=== PATIENT | male | born 2000 | race Asian ===

== ENCOUNTER 2020-07-22 18:02 | Emergency (ER) | payer OTHER, SELFPAY ==
[2020-07-22 18:12] VITALS: BP 130/76; PULSE 93; RESP 16; TEMP 36.7; O2SAT 98; BMI 22.0
--- NOTE | 2020-07-22 18:34 | ED_ITS ---
HPI - URI/Sore Throat General: Chief Complaint: Upper Respiratory Infection Stated Complaint: N/V sore throat Time Seen by Provider: 07/22/20 18:19 History of Present Illness: HPI Narrative: Upper restaurant infection times couple 3 days with mucus going stomach vomited x1 denies fever has had some chills denies any preston type symptoms. MD elicited complaint: sore throat, nasal congestion and sinus pain Onset (ago): day(s) Consistency: constant Associated symptoms: Reports nasal congestion and sinus pain; Deny abdominal pain, chills, chest pain, fever(s), headache(s), nausea or vomiting Treatments prior to arrival: none Review of Systems Const: Denies: fever(s), chills or body aches Eyes: Denies: change in vision or blurry vision ENMT: Reports: throat pain, nasal congestion and sinus pain Card: Denies: chest pain or dyspnea on exertion Resp: Denies: dyspnea, productive cough or non-productive cough GI: Denies: abdominal pain, nausea or vomiting : Denies: difficulty urinating Musc: Denies: extremity pain Skin/Breast: Denies: rash Neuro: Denies: headache(s) Psych: Denies: anxiety or depression Tonny/Lymph: Denies: easy bruising Physical Exam Const: COMMON NORMALS: no acute distress, average body habitus and patient oriented x3 HENMT: COMMON NORMALS: normocephalic HEAD & SCALP: normal to inspection and normocephalic FACE & SINUS: sinus tenderness Eye: COMMON NORMALS: conjunctivae normal GENERAL EYE: appearance normal, both eyes and all related structures CONJUNCTIVA: Yes conjunctivae normal Neck/C-Spine: COMMON NORMALS: no JVD Chest: COMMONS NORMALS: normal inspection of the chest Resp: COMMON NORMALS: normal respiratory effort and clear to auscultation bilaterally AUSCULTATION: clear to auscultation bilaterally Cardio: COMMON NORMALS: no JVD, regular rate and regular rhythm RATE: regular rate RHYTHM: regular rhythm GI: COMMON NORMALS: Normal to inspection, nondistended, normoactive bowel sounds present Extremity: COMMON NORMALS: normal to inspection and full ROM Neuro: COMMON NORMALS: patient oriented x3 Course Vital Signs: Vital signs: Vital Signs Temperature 98.1 F 07/22/20 18:12 Pulse Rate 93 07/22/20 18:12 Respiratory Rate 16 07/22/20 18:12 Blood Pressure 130/76 07/22/20 18:12 Pulse Oximetry 98 07/22/20 18:12 Discharge Plan Discharge Patient Disposition: Home Clinical Impression: Upper respiratory infection Qualifiers: URI type: unspecified URI Qualified Code(s): J06.9 - Acute upper respiratory infection, unspecified Condition: Stable Prescriptions: New Bactrim DS 800-160 mg tablet 1 tab PO BID 7 Days Qty: 14 RF: 0 Mucinex 1,200 mg tablet extended release 12hr 1,200 mg PO BID PRN (Reason: congestion) Qty: 14 RF: 0 Discharge Orders: Discharge ED (Routine); Ordered 07/22/20 Ordered By: Caesar Craven Discharge Diet: Usual diet Discharge Activity: Increase activity as tolerated Patient Instructions: Upper Respiratory Infection (ED) Activity Restrictions/Additional Instructions: Follow-up with medical provider as directed. Take medications as prescribed. Return to the ER or your medical provider if condition worsens. Please read and understand discharge instructions. If any questions ask please. 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
[2020-07-22 18:40] VITALS: BP 120/69; PULSE 79; RESP 16; O2SAT 97
[2020-07-22] MEDS: sulfamethoxazole-trimeth DS 160-800 mg Tablet 1 TAB PO (18:40)
[2020-07-22] MEDS: guaiFENesin 600 mg Tablet 1200 MG PO (19:20)
== END 2020-07-22 19:26 | disposition home or self-care (01) ==
PROVIDERS: Emergency Provider Nurse Practitioner Family
DX: J06.9 Acute upper respiratory infection, unspecified (principal)
CPT/HCPCS: 12345; 99282

== ENCOUNTER → 2021-05-05 12:51 | Outpatient (BNVA) | payer OTHER, SELFPAY | PROVIDERS: Visit Provider Nurse Practitioner Family | DX: Z20.822 Contact with and (suspected) exposure to COVID-19 (principal) | CPT/HCPCS: 87635 ==

== ENCOUNTER 2021-07-17 04:30 | Emergency (ER) | payer OTHER, SELFPAY ==
[2021-07-17] MEDS: ondansetron 2 mg/ML SDV 2 mL 4 MG IVP (04:35)
[2021-07-17] MEDS: sodium chloride 0.9% 1,000 ML 999 ML IV (04:35)
[2021-07-17 04:40] VITALS: BP 125/76; PULSE 79; RESP 18; TEMP 36.5; O2SAT 100; BMI 22.0
--- NOTE | 2021-07-17 04:51 | W.ED.NAVMDI ---
HPI - Nausea/Vomiting/Diarrhea General: Chief complaint: Nausea/Vomiting/Diarrhea Stated complaint: ABD Pain N\V Time Seen by Provider: 07/17/21 04:33 Source: patient Mode of arrival: ambulatory Limitations: no limitations History of Present Illness: HPI Narrative: 20-year-old male states that he woke up 1 hour ago having some nausea vomiting and abdominal cramping. He states that he has had multiple episodes of vomiting the cramping is mild in nature rates it a 2 out of 10 denies any fever denies any diarrhea denies any worsening or improving factors. States it is a normal gait anything that made him sick. He is resting comfortably in the bed currently. Associated nausea: Yes Associated symtoms: Reports nausea; Denies chest pain, dysuria or headache(s) Review of Systems Const: Denies: fever(s), chills, body aches or change in appetite Eyes: Denies: blurry vision or eye discomfort ENMT: Denies: throat pain or dental pain Card: Denies: chest pain Resp: Denies: dyspnea GI: Reports: abdominal pain, nausea and vomiting : Denies: dysuria Musc: Denies: neck pain or back pain Skin/Breast: Denies: rash Neuro: Denies: headache(s) Psych: Denies: depression Tonny/Lymph: Denies: easy bruising All/Imm: Denies: urticaria PFSH ED PFSH: Social History Smoking and tobacco status: current every day smoker cigarettes and e-cigarettes E-Cigarette Details: vaporizer device Physical Exam Const: COMMON NORMALS: no acute distress, patient oriented x3 and healthy appearing HENMT: COMMON NORMALS: normocephalic and atraumatic HEAD & SCALP: normocephalic and atraumatic Eye: COMMON NORMALS: Equal, round and reactive pupils present and EOMs intact bilaterally PUPIL: Yes Equal, round and reactive pupils present Neck/C-Spine: COMMON NORMALS: full ROM and supple Chest: COMMONS NORMALS: normal inspection of the chest and normal palpation of entire chest wall Resp: COMMON NORMALS: normal respiratory effort, No retractions, No use of accessory muscles and clear to auscultation bilaterally AUSCULTATION: clear to auscultation bilaterally Cardio: COMMON NORMALS: regular rate, regular rhythm and No murmurs present (Cardio) RATE: regular rate RHYTHM: regular rhythm GI: COMMON NORMALS: Normal to inspection, nondistended, normoactive bowel sounds present, Soft to palpation, non-tender and no masses PALPATION: Yes Soft to palpation Extremity: COMMON NORMALS: normal to inspection and full ROM Neuro: COMMON NORMALS: patient oriented x3, moves all extremities and no focal motor deficits Psych: COMMON NORMALS: mental status grossly normal, Normal thought process present and cooperative THOUGHT PROCESS: Normal thought process present Skin: COMMON NORMALS: no rashes or lesions noted and no wounds GENERAL SKIN EXAM: no rashes or lesions noted Course Vital Signs: Vital signs: Vital Signs Temperature 97.7 F 07/17/21 04:40 Pulse Rate 79 07/17/21 04:40 Respiratory Rate 18 07/17/21 04:40 Blood Pressure 125/76 07/17/21 04:40 Pulse Oximetry 100 07/17/21 04:40 MDM - Nausea/Vomiting/Diarrhea MDM Narrative: Medical decision making narrative: Patient presents with nausea vomiting likely viral in origin he is well-appearing here you his abdominal exam is benign he has no pain patient's blood work is all normal will prescribe him Zofran for home he is to follow-up his PCP and return if worsening he understands agrees to plan. Lab Data: Labs: Lab Results 07/17/21 07/17/21 04:57 04:57 WBC 10.5 10^3/uL H 10 ^3/uL (4.0-10.0) RBC 5.03 10^6/uL 10^6 /uL (4.1-5.3) Hgb 16.2 g/dL g/dL (11.7-16.6) Hct 46.9 % % (42.0-52.0) MCV 93.2 fl fl (80-94) MCH 32.2 pg pg (28.0-34.0) MCHC 34.5 g/dL g/dL (30.0-36.0) RDW 11.8 % L % (12.1-15.1) Plt Count 347 10^3/cmm 10^3 /cmm (130-400) MPV 10.1 fL fL (7.4-10.4) Neut % (Auto) 53.7 % % Lymph % (Auto) 36.1 % % [place] % (Auto) 8.9 % % Eos % (Auto) 0.6 % % Baso % (Auto) 0.4 % % Neut # (Auto) 5.62 10^3/uL 10^3 /uL (1.8-7.7) Lymph # (Auto) 3.8 10^3/uL 10^3/ uL (0.8-4.8) [place] # (Auto) 0.9 10^3/uL 10^3/ uL (0.2-0.9) Eos # (Auto) 0.1 10^3/uL 10^3/ uL (0.0-0.8) Baso # (Auto) 0.0 10^3/uL 10^3/ uL (0.0-0.1) Nucleated RBC % (a uto) 0 % % Nucleated RBCs # 0.0 /100WBC /100W BC Sodium 141 mmol/L mmol/L (136-145) Potassium 4.6 mmol/L mmol/L (3.5-5.1) Chloride 104 mmol/L mmol/L (98-107) Carbon Dioxide 28 mmol/L mmol/L (22-29) Anion Gap 13.6 (5-19) BUN 16 mg/dL mg/dL (6-20) Creatinine 0.8 mg/dL mg/dL (0.7-1.2) GFR Calculation 122.0 mL/min mL/m in (90-130) Glucose 101 mg/dL mg/dL (65-115) Calculated Osmolal ity 293 mOsm/kg mOsm/ kg (285-295) Calcium 9.6 mg/dL mg/dL (8.5-10.5) Total Bilirubin 0.5 mg/dL mg/dL (0.15-1.2) AST 22 U/L U/L (0-40) ALT 28 U/L U/L (0-41) Alkaline Phosphata se 100 IU/L IU/L (40-130) Total Protein 7.7 g/dL g/dL (6.6-8.7) Albumin 4.7 g/dL g/dL (3.5-5.2) Globulin 3.0 g/dL g/dL (1.3-4.6) Lipase 19 U/L U/L (13-60) Discharge Plan Discharge Patient Disposition: Home Clinical Impression: Vomiting Qualifiers: Vomiting type: unspecified Vomiting Intractability: non-intractable Nausea presence: with nausea Qualified Code(s): R11.2 - Nausea with vomiting, unspecified Condition: Stable Prescriptions: New ondansetron 4 mg tablet,disintegrating 4 mg PO Q6H PRN (Reason: nausea and vomiting) Qty: 14 RF: 0 No Action sertraline 100 mg tablet 100 mg PO DAILY RF: 0 aripiprazole [Abilify] 5 mg tablet 5 mg PO DAILY RF: 0 Discharge Orders: Discharge ED (Routine); Ordered 07/17/21 Ordered By: Jaylene Rhoades Discharge Diet: Advance as tolerated Discharge Activity: Resume usual activity Patient Instructions: Acute Nausea and Vomiting (ED) Stand Alone Forms: Work/School Release Coding Level of Care Code 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
[2021-07-17 05:08] LABS: Basophils % 0.4 %; Eosinophils # 0.1 10^3/uL (0.0-0.8); Eosinophils % 0.6 %; Hematocrit 46.9 % (42.0-52.0); Hemoglobin 16.2 g/dL (11.7-16.6); Lymphocytes # 3.8 10^3/uL (0.8-4.8); Lymphocytes % 36.1 %; Mean Corpuscular HGB Conc 34.5 g/dL (30.0-36.0); Mean Corpuscular Hemoglobin 32.2 pg (28.0-34.0); Mean Corpuscular Volume 93.2 fl (80-94); Mean Platelet Volume 10.1 fL (7.4-10.4); Monocytes # 0.9 10^3/uL (0.2-0.9); Monocytes % 8.9 %; Neutrophils # 5.62 10^3/uL (1.8-7.7); Neutrophils % 53.7 %; Nucleated Red Blood Cells % 0 %; Platelet Count 347 10^3/cmm (130-400); Red Blood Count 5.03 10^6/uL (4.1-5.3); Red Cell Distribution Width 11.8 % (12.1-15.1); White Blood Count 10.5 10^3/uL (4.0-10.0)
[2021-07-17 05:37] LABS: Anion Gap 13.6 (5-19); Aspartate Amino Transferase 22 U/L (0-40); Blood Urea Nitrogen 16 mg/dL (6-20); Calcium 9.6 mg/dL (8.5-10.5); Carbon Dioxide 28 mmol/L (22-29); Chloride 104 mmol/L (98-107); Creatinine Clr Calc Pharmacy 139.1399; Glucose 101 mg/dL (65-115); Lipase 19 U/L (13-60); Osmolality Calculated 293 mOsm/kg (285-295); Potassium 4.6 mmol/L (3.5-5.1); Sodium 141 mmol/L (136-145); Total Bilirubin 0.5 mg/dL (0.15-1.2); Total Protein 7.7 g/dL (6.6-8.7)
[2021-07-17 05:53] LABS: Alanine Aminotransferase 28 U/L (0-41); Albumin Level 4.7 g/dL (3.5-5.2); Alkaline Phosphatase 100 IU/L (40-130)
== END 2021-07-17 05:56 | disposition home or self-care (01) ==
PROVIDERS: Emergency Provider Emergency Medicine
DX: R11.2 Nausea with vomiting, unspecified (principal); F17.210 Nicotine dependence, cigarettes, uncomplicated; F17.290 Nicotine dependence, other tobacco product, uncomplicated
CPT/HCPCS: 80053; 83690; 85025; 96361; 96374; 99283; J2405; J7030

== ENCOUNTER 2021-08-25 02:25 | Emergency (ER) | payer OTHER, SELFPAY ==
[2021-08-25 02:37] VITALS: BP 123/74; PULSE 104; RESP 18; TEMP 36.7; O2SAT 99; BMI 22.8
--- NOTE | 2021-08-25 03:04 | ED_ITS ---
HPI - SOB/Dyspnea General: Chief Complaint: Shortness of Breath/Dyspnea Stated Complaint: Sob, Light head, N/D Cough muscle aches Time Seen by Provider: 08/25/21 03:04 History of Present Illness: HPI Narrative: Mr. Andre is a 20-year-old gentleman with history of tobaccoism and childhood asthma who presents emergency department due to infectious symptoms. Symptom onset was subacute on August 19. He endorses initially generalized aches and pains and has subsequently developed shortness of breath, lightheadedness, generalized myalgias and arthralgias, cough, and tightness in his chest. Additionally he has had some nausea and diarrhea. Overall the course of symptoms has been worsening. He has used yhau-zji-ebpcumn medications without significant relief. He is vaccinated against Covid but does have sick exposures. No other specific changes in hea lth, exacerbating, or relieving factors identified. Review of Systems General: Reports: 10 or more systems reviewed and unremarkable except in HPI and below PFSH ED PFSH: Social History Smoking and tobacco status: current every day smoker cigarettes and e- cigarettes E-Cigarette Details: vaporizer device Physical Exam Narrative: EXAM NARRATIVE: GENERAL/CONSTITUTIONAL -mildly ill-appearing. Eyes -no scleral icterus, no conjunctival injection ENMT - Atraumatic external nose and ears. Moist mucous membranes NECK - supple. trachea midline CARDIOVASCULAR -tachycardic rate and regular rhythm. Normal peripheral perfusion. RESPIRATORY -coarse to auscultation bilaterally. No retractions or accessory muscle use. ABDOMEN/GI - Nontender/Nondistended. MSK - Extremities without obvious deformity or tenderness to palpation SKIN - Warm, Dry NEURO - alert and appropriately oriented. Moves all extremities equally. Course ED course: - Patient was seen and evaluated by me at bedside - Patient placed on cardiac monitors, IV access obtained - Initial evaluation notable for mildly ill appearance as noted -Symptom treatment ordered - Labs notable for mild leukocytosis. No acute electrolyte derangement, mildly elevated ALT. Negative Covid test. Procalcitonin is negative. - Imaging notable for negative chest x-ray - Upon serial reexamination after treatment the patient was somewhat improved - Based on patient history, evaluation, labs, and imaging as interpreted the most likely cause of the patient's condition is viral illness - The results of ED evaluation were discussed with the patient including prescriptions and/or symptomatic cares (if applicable) including appropriate and responsible use, followup plan, and return precautions. The patient verbalized understanding and felt safe for discharge. - Patient discharged in satisfactory condition. Vital Signs: Vital signs: Vital Signs Temperature 98.1 F 08/25/21 02:37 Pulse Rate 83 08/25/21 06:04 Respiratory Rate 18 08/25/21 06:04 Blood Pressure 109/82 08/25/21 06:04 Pulse Oximetry 98 08/25/21 06:04 MDM - SOB/Dyspnea Medical Records: Attestation: I reviewed the patient's medical records. Lab Data: Attestation: I reviewed the patient's lab results. Labs: Lab Results 08/25/21 08/25/21 08/25/21 03:45 03:45 03:45 WBC 12.2 10^3/uL H 10 ^3/uL (4.0-10.0) RBC 5.02 10^6/uL 10^6 /uL (4.1-5.3) Hgb 16.2 g/dL g/dL (11.7-16.6) Hct 46.0 % % (42.0-52.0) MCV 91.6 fl fl (80-94) MCH 32.3 pg pg (28.0-34.0) MCHC 35.2 g/dL g/dL (30.0-36.0) RDW 11.4 % L % (12.1-15.1) Plt Count 394 10^3/cmm 10^3 /cmm (130-400) MPV 10.0 fL fL (7.4-10.4) Neut % (Auto) 63.9 % % Lymph % (Auto) 27.6 % % [place] % (Auto) 7.1 % % Eos % (Auto) 0.6 % % Baso % (Auto) 0.5 % % Neut # (Auto) 7.78 10^3/uL H 10 ^3/uL (1.8-7.7) Lymph # (Auto) 3.4 10^3/uL 10^3/ uL (0.8-4.8) [place] # (Auto) 0.9 10^3/uL 10^3/ uL (0.2-0.9) Eos # (Auto) 0.1 10^3/uL 10^3/ uL (0.0-0.8) Baso # (Auto) 0.1 10^3/uL 10^3/ uL (0.0-0.1) Nucleated RBC % (a uto) 0 % % Nucleated RBCs # 0.0 /100WBC /100W BC Sodium 141 mmol/L mmol/L (136-145) Potassium 3.8 mmol/L mmol/L (3.5-5.1) Chloride 102 mmol/L mmol/L (98-107) Carbon Dioxide 24 mmol/L mmol/L (22-29) Anion Gap 18.8 (5-19) BUN 12 mg/dL mg/dL (6-20) Creatinine 0.7 mg/dL mg/dL (0.7-1.2) GFR Calculation 142.4 mL/min H mL /min (90-130) Glucose 90 mg/dL mg/dL (65-115) Calculated Osmolal ity 291 mOsm/kg mOsm/ kg (285-295) Calcium 9.1 mg/dL mg/dL (8.5-10.5) Total Bilirubin 0.2 mg/dL mg/dL (0.15-1.2) AST 22 U/L U/L (0-40) ALT 42 U/L H U/L (0-41) Alkaline Phosphata se 128 IU/L IU/L (40-130) Total Protein 7.9 g/dL g/dL (6.6-8.7) Albumin 4.7 g/dL g/dL (3.5-5.2) Globulin 3.2 g/dL g/dL (1.3-4.6) Procalcitonin Coronavirus 229E ( PCR) Not detected (NOT DETECT) SARS-CoV-2 (PCR) Not detected (NOT DETECT) 08/25/21 03:45 WBC RBC Hgb Hct MCV MCH MCHC RDW Plt Count MPV Neut % (Auto) Lymph % (Auto) [place] % (Auto) Eos % (Auto) Baso % (Auto) Neut # (Auto) Lymph # (Auto) [place] # (Auto) Eos # (Auto) Baso # (Auto) Nucleated RBC % (a uto) Nucleated RBCs # Sodium Potassium Chloride Carbon Dioxide Anion Gap BUN Creatinine GFR Calculation Glucose Calculated Osmolal ity Calcium Total Bilirubin AST ALT Alkaline Phosphata se Total Protein Albumin Globulin Procalcitonin 0.05 ng/mL ng/mL (0-0.5) Coronavirus 229E ( PCR) SARS-CoV-2 (PCR) EKG Data^: EKG 1: Attestation: I personally reviewed and interpreted this EKG as follows: EKG Interpretation Date: 08/25/21 EKG interpretation time: 03:50 Interpretation: Twelve-lead EKG shows a regular rhythm at a rate of 77. ND interval 152, QRS duration 93, QTc 356. Normal axis. Interpretation: Sinus rhythm with Discharge Plan Discharge Patient Disposition: Home Clinical Impression: Shortness of breath, Acute viral syndrome Condition: Stable Prescriptions: New ondansetron 4 mg tablet,disintegrating 4 mg PO Q8H PRN (Reason: nausea and vomiting) 4 Days Qty: 12 RF: 0 albuterol sulfate 90 mcg/actuation HFA aerosol inhaler 2 inh inhalation Q4H PRN (Reason: shortness of breath or wheezing) Qty: 8.5 RF: 0 No Action sertraline 100 mg tablet 100 mg PO DAILY RF: 0 Discharge Orders: Discharge ED (Routine); Ordered 08/25/21 Ordered By: Armin Perdomo Discharge Diet: Usual diet Discharge Activity: Resume usual activity Patient Instructions: Viral Syndrome (ED) Activity Restrictions/Additional Instructions: Thank you for visiting the emergency department. You were seen and evaluated for cough, shortness of breath, aches, and diarrhea. The exact cause of your symptoms is unclear though most likely related to a viral syndrome. The treatment for this is supportive. You will be sent home with a prescription for nausea medication as well as an inhaler given your history of asthma. You may use cean-ygg-swdygen medications for symptoms. Please ensure that you are staying hydrated. Please return to the emergency department for worsening symptoms or anything else that you are concerned about and feel needs emergency department evaluation. 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
--- NOTE | 2021-08-25 03:27 | XRR_ITS ---
PROCEDURE INFORMATION: Exam: XR Chest Exam date and time: 08/25/2021 3:27 AM Age: 20 years old Clinical indication: Cough and shortness of breath; Patient HX: Cough with SOB. ; Additional info: Cough, SOB TECHNIQUE: Imaging protocol: XR of the chest. Views: 1 view. COMPARISON: No relevant prior studies available. FINDINGS: Lungs: Unremarkable. No consolidation. Pleural spaces: Unremarkable. No pleural effusion. No pneumothorax. Heart/Mediastinum: Unremarkable. No cardiomegaly. Bones/joints: Unremarkable. XR/XR chest 1V portable [id number] IMPRESSION: No acute findings.
--- NOTE | 2021-08-25 03:27 | ECG_ITS ---
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 Measurements Intervals [place] Rate: 77 P: 66 CT: 152 QRS: 57 QRSD: 93 T: 38 QT: 324 QTc: 368 Interpretive Statements SINUS RHYTHM No previous ECG available for comparison Electronically Signed On 08-25-2021 13:15:55 WELDER EXPLOSION by Aislinn Perea M.D. [email or web address]
[2021-08-25] MEDS: ketorolac 30 mg/mL INJ 15 MG IVP (03:44)
[2021-08-25] MEDS: sodium chloride 0.9% 500 ML 999 ML IV (03:45)
[2021-08-25 03:55] LABS: Basophils # 0.1 10^3/uL (0.0-0.1); Basophils % 0.5 %; Eosinophils # 0.1 10^3/uL (0.0-0.8); Eosinophils % 0.6 %; Hemoglobin 16.2 g/dL (11.7-16.6); Lymphocytes # 3.4 10^3/uL (0.8-4.8); Lymphocytes % 27.6 %; Mean Corpuscular HGB Conc 35.2 g/dL (30.0-36.0); Mean Corpuscular Hemoglobin 32.3 pg (28.0-34.0); Mean Corpuscular Volume 91.6 fl (80-94); Monocytes # 0.9 10^3/uL (0.2-0.9); Monocytes % 7.1 %; Neutrophils # 7.78 10^3/uL (1.8-7.7); Neutrophils % 63.9 %; Nucleated Red Blood Cells % 0 %; Platelet Count 394 10^3/cmm (130-400); Red Blood Count 5.02 10^6/uL (4.1-5.3); Red Cell Distribution Width 11.4 % (12.1-15.1); White Blood Count 12.2 10^3/uL (4.0-10.0)
[2021-08-25 04:19] LABS: Alanine Aminotransferase 42 U/L (0-41); Albumin Level 4.7 g/dL (3.5-5.2); Alkaline Phosphatase 128 IU/L (40-130); Aspartate Amino Transferase 22 U/L (0-40); Blood Urea Nitrogen 12 mg/dL (6-20); Calcium 9.1 mg/dL (8.5-10.5); Carbon Dioxide 24 mmol/L (22-29); Chloride 102 mmol/L (98-107); Globulin 3.2 g/dL (1.3-4.6); Glomerular Filtration Rate 142.4 mL/min (90-130); Glucose 90 mg/dL (65-115); Osmolality Calculated 291 mOsm/kg (285-295); Sodium 141 mmol/L (136-145); Total Bilirubin 0.2 mg/dL (0.15-1.2); Total Protein 7.9 g/dL (6.6-8.7)
[2021-08-25 04:20] LABS: Anion Gap 18.8 (5-19); Potassium 3.8 mmol/L (3.5-5.1)
[2021-08-25 04:42] LABS: Procalcitonin 0.05 ng/mL (0-0.5)
[2021-08-25 05:37] LABS: Adenovirus Not Detected (NOT DETECT); Chlamydia Pneumoniae Not Detected (NOT DETECT); Coronavirus 229E,HKU1,NL63,OC4 Not Detected (NOT DETECT); Human Metapneumovirus Not Detected (NOT DETECT); Human Rhinovirus/Enterovirus Not Detected (NOT DETECT); Influenza A Not Detected (NOT DETECT); Influenza A H1 Not Detected (NOT DETECT); Influenza A H1-2009 Not Detected (NOT DETECT); Influenza A H3 Not Detected (NOT DETECT); Influenza B Not Detected (NOT DETECT); Mycoplasma Pneumoniae Not Detected (NOT DETECT); Parainfluenza Virus Type 1 Not Detected (NOT DETECT); Parainfluenza Virus Type 2 Not Detected (NOT DETECT); Parainfluenza Virus Type 3 Not Detected (NOT DETECT); Parainfluenza Virus Type 4 Not Detected (NOT DETECT); Respiratory Syncytial Virus A Not Detected (NOT DETECT); Respiratory Syncytial Virus B Not Detected (NOT DETECT); SARS-COV-2 Not Detected (NOT DETECT)
[2021-08-25 06:04] VITALS: BP 109/82; PULSE 83; RESP 18; O2SAT 98
== END 2021-08-25 06:05 | disposition home or self-care (01) ==
PROVIDERS: Emergency Provider Emergency Medicine
DX: B34.9 Viral infection, unspecified (principal); R06.02 Shortness of breath; F17.290 Nicotine dependence, other tobacco product, uncomplicated; Z20.822 Contact with and (suspected) exposure to COVID-19
CPT/HCPCS: 71045; 80053; 84145; 85025; 87635; 93005; 96374; 99283; J1885; J7040

== ENCOUNTER 2021-10-26 23:44 | Emergency (ER) | payer OTHER, SELFPAY ==
--- NOTE | 2021-10-26 23:46 | XRR_ITS ---
PROCEDURE INFORMATION: Exam: XR Chest Exam date and time: 10/26/2021 11:46 PM Age: 21 years old Clinical indication: Cough TECHNIQUE: Imaging protocol: XR of the chest. Views: 1 view. COMPARISON: CR XR chest 1V portable [id number] 08/25/2021 3:34 AM FINDINGS: Lungs: Unremarkable. No consolidation. Pleural spaces: Unremarkable. No pleural effusion. No pneumothorax. Heart/Mediastinum: Unremarkable. No cardiomegaly. Bones/joints: Unremarkable. XR/XR chest 1V portable [id number] IMPRESSION: No acute findings.
[2021-10-26 23:50] VITALS: BP 129/82; PULSE 140; RESP 18; TEMP 38.5; O2SAT 97; BMI 22.8
--- NOTE | 2021-10-26 23:52 | ED_ITS ---
HPI - Fever General: Chief Complaint: COVID symptoms Stated Complaint: Cough\Cant Eat? Time Seen by Provider: 10/26/21 23:46 Source: patient Mode of arrival: ambulatory Limitations: no limitations History of Present Illness: 21-year-old male states that over the last 2 days he has been having fevers body aches, nausea and difficulty eating. He states he is also had some cough and dyspnea. He works at [employer] states been around multiple coworkers that has had similar illness. He is unsure if anyone has had flu or Covid. He is febrile here with tachycardia he has had muscle aches as well. Denies any abdominal pain or dysuria. Associated symptoms: Reports chills; Deny abdominal pain, chest pain, diarrhea, dysuria, headache(s), nausea or vomiting Review of Systems Const: Reports: fever(s), chills and body aches Eyes: Denies: blurry vision or eye discomfort ENMT: Denies: throat pain or dental pain Card: Denies: chest pain Resp: Denies: dyspnea GI: Denies: abdominal pain, nausea, vomiting or diarrhea : Denies: dysuria Musc: Denies: neck pain or back pain Skin/Breast: Denies: rash Neuro: Denies: headache(s) Psych: Denies: depression Tonny/Lymph: Denies: easy bruising All/Imm: Denies: urticaria PFSH ED PFSH: Medical History Asthma Social History Smoking and tobacco status: current every day smoker cigarettes and e- cigarettes E-Cigarette Details: vaporizer device Physical Exam Const: COMMON NORMALS: no acute distress, patient oriented x3 and healthy appearing HENMT: COMMON NORMALS: normocephalic and atraumatic HEAD & SCALP: normocephalic and atraumatic Eye: COMMON NORMALS: Equal, round and reactive pupils present and EOMs intact bilaterally PUPIL: Yes Equal, round and reactive pupils present Neck/C-Spine: COMMON NORMALS: full ROM and supple Chest: COMMONS NORMALS: normal inspection of the chest and normal palpation of entire chest wall Resp: COMMON NORMALS: normal respiratory effort, No retractions, No use of accessory muscles and clear to auscultation bilaterally AUSCULTATION: clear to auscultation bilaterally Cardio: COMMON NORMALS: regular rhythm and No murmurs present (Cardio) RATE: tachycardic RHYTHM: regular rhythm GI: COMMON NORMALS: Normal to inspection, nondistended, normoactive bowel sounds present, Soft to palpation, non-tender and no masses PALPATION: Yes Soft to palpation Extremity: COMMON NORMALS: normal to inspection and full ROM Neuro: COMMON NORMALS: patient oriented x3, moves all extremities and no focal motor deficits Psych: COMMON NORMALS: mental status grossly normal, Normal thought process present and cooperative THOUGHT PROCESS: Normal thought process present Skin: COMMON NORMALS: no rashes or lesions noted and no wounds GENERAL SKIN EXAM: no rashes or lesions noted Course Vital Signs: Vital signs: Vital Signs Temperature 99.5 F 10/27/21 00:57 Pulse Rate 109 H 10/27/21 00:57 Respiratory Rate 16 10/27/21 00:57 Blood Pressure 117/75 10/27/21 00:57 Pulse Oximetry 98 10/27/21 00:09 MDM - Fever Medical Decision Making Patient presents here with cough body aches likely viral syndrome blood work here is all normal his exam is benign patient heart rate here is improved to 95 temperature resolved normal white count no signs urinary tract infection no s igns of pneumonia flu and Covid is negative. Abdominal exam here is benign he stable for discharge is to take Motrin Tylenol follow-up with PCP and return if worsening. Lab Data : 10/27/21 00:00 10/27/21 00:00 Radiology Impressions Chest X-Ray 10/26/21 23:46 IMPRESSION: No acute findings. Laboratory Results WBC 7.4 10^3/uL (4.0-10.0) 10/27/21 00:00 RBC 4.26 10^6/uL (4.1-5.3) 10/27/21 00:00 Hgb 13.9 g/dL (11.7-16.6) 10/27/21 00:00 Hct 39.9 % (42.0-52.0) L 10/27/21 00:00 MCV 93.7 fl (80-94) 10/27/21 00:00 MCH 32.6 pg (28.0-34.0) 10/27/21 00:00 MCHC 34.8 g/dL (30.0-36.0) 10/27/21 00:00 RDW 11.8 % (12.1-15.1) L 10/27/21 00:00 Plt Count 307 10^3/cmm (130-400) 10/27/21 00:00 MPV 10.1 fL (7.4-10.4) 10/27/21 00:00 Neut % (Auto) 73.9 % 10/27/21 00:00 Lymph % (Auto) 12.6 % 10/27/21 00:00 [place] % (Auto) 13.3 % 10/27/21 00:00 Eos % (Auto) 0.0 % 10/27/21 00:00 Baso % (Auto) 0.1 % 10/27/21 00:00 Neut # (Auto) 5.46 10^3/uL (1.8-7.7) 10/27/21 00:00 Lymph # (Auto) 0.9 10^3/uL (0.8-4.8) 10/27/21 00:00 [place] # (Auto) 1.0 10^3/uL (0.2-0.9) H 10/27/21 00:00 Eos # (Auto) 0.0 10^3/uL (0.0-0.8) 10/27/21 00:00 Baso # (Auto) 0.0 10^3/uL (0.0-0.1) 10/27/21 00:00 Nucleated RBC % (auto) 0 % 10/27/21 00:00 Nucleated RBCs # 0.0 /100WBC 10/27/21 00:00 Sodium 140 mmol/L (136-145) 10/27/21 00:00 Potassium 3.9 mmol/L (3.5-5.1) 10/27/21 00:00 Chloride 104 mmol/L (98-107) 10/27/21 00:00 Carbon Dioxide 23 mmol/L (22-29) 10/27/21 00:00 Anion Gap 16.9 (5-19) 10/27/21 00:00 BUN 8 mg/dL (6-20) 10/27/21 00:00 Creatinine 0.6 mg/dL (0.7-1.2) L 10/27/21 00:00 GFR Calculation 168.5 mL/min (90-130) H 10/27/21 00:00 Glucose 98 mg/dL (65-115) 10/27/21 00:00 Calculated Osmolality 288 mOsm/kg (285-295) 10/27/21 00:00 Calcium 9.3 mg/dL (8.5-10.5) 10/27/21 00:00 Total Bilirubin 0.3 mg/dL (0.15-1.2) 10/27/21 00:00 AST 21 U/L (0-40) 10/27/21 00:00 ALT 30 U/L (0-41) 10/27/21 00:00 Alkaline Phosphatase 99 IU/L (40-130) 10/27/21 00:00 Total Protein 7.0 g/dL (6.6-8.7) 10/27/21 00:00 Albumin 4.9 g/dL (3.5-5.2) 10/27/21 00:00 Globulin 2.1 g/dL (1.3-4.6) 10/27/21 00:00 Urine Color Yellow (Yellow) 10/27/21 00:01 Urine Appearance Clear (CLEAR) 10/27/21 00:01 Urine pH 5 (5-7) 10/27/21 00:01 Ur Specific [place] 1.020 (1.005-1.030) 10/27/21 00:01 Urine Protein Neg (Negative) 10/27/21 00:01 Urine Glucose (UA) Norm (Normal) 10/27/21 00:01 Urine Ketones Negative (Negative) 10/27/21 00:01 Urine Blood Neg (Negative) 10/27/21 00:01 Urine Nitrate Negative (Negative) 10/27/21 00:01 Urine Bilirubin Neg (Negative) 10/27/21 00:01 Urine Urobilinogen Norm mg/dL (Negative) 10/27/21 00:01 Ur Leukocyte Esterase Negative (Negative) 10/27/21 00:01 Influenza Type A Ag Negative (Negative) 10/26/21 23:50 Influenza Type B Ag Negative (Negative) 10/26/21 23:50 SARS-CoV-2 Ag (Rapid) Negative (Negative) 10/26/21 23:50 Discharge Plan Discharge Patient Disposition: Home Clinical Impression: Acute viral syndrome Condition: Stable Prescriptions: No Action sertraline 100 mg tablet 100 mg PO DAILY 0RF albuterol sulfate 90 mcg/actuation HFA aerosol inhaler 2 inh inhalation Q4H PRN (Reason: shortness of breath or wheezing) Qty: 8.5 0RF Discharge Orders: Discharge ED (Routine); Ordered 10/27/21 Ordered By: Jaylene Rhoades Discharge Diet: Advance as tolerated Discharge Activity: Resume usual activity Patient Instructions: Viral Syndrome (ED) Stand Alone Forms: Work/School Release Coding Level of Care Code ED Chucking Machine Set Up Operator for Chg Fwd Exam Comprehensive
[2021-10-27 00:09] VITALS: O2SAT 98
[2021-10-27] MEDS: sodium chloride 0.9% 1,000 ML 999 ML IV (00:10)
[2021-10-27] MEDS: acetaminophen 500 mg Tablet 1000 MG PO (00:10)
[2021-10-27 00:11] LABS: Add Urine Microscopic? NO; Charge for UA Resulting for Rev
[2021-10-27 00:17] LABS: Basophils % 0.1 %; Hematocrit 39.9 % (42.0-52.0); Hemoglobin 13.9 g/dL (11.7-16.6); Lymphocytes # 0.9 10^3/uL (0.8-4.8); Lymphocytes % 12.6 %; Mean Corpuscular HGB Conc 34.8 g/dL (30.0-36.0); Mean Corpuscular Hemoglobin 32.6 pg (28.0-34.0); Mean Corpuscular Volume 93.7 fl (80-94); Mean Platelet Volume 10.1 fL (7.4-10.4); Monocytes % 13.3 %; Neutrophils # 5.46 10^3/uL (1.8-7.7); Neutrophils % 73.9 %; Nucleated Red Blood Cells % 0 %; Platelet Count 307 10^3/cmm (130-400); Red Blood Count 4.26 10^6/uL (4.1-5.3); Red Cell Distribution Width 11.8 % (12.1-15.1); White Blood Count 7.4 10^3/uL (4.0-10.0)
[2021-10-27 00:25] LABS: Bilirubin Urine Neg (Negative); Blood Urine Neg (Negative); Glucose Urine UA Norm (Normal); Ketones Urine Negative (Negative); Leukocyte Esterase Urine Negative (Negative); Nitrate Urine Negative (Negative); Protein Urine Neg (Negative); Urine Appearance Clear (CLEAR); Urine Color Yellow (Yellow); Urobilinogen Urine Norm (Negative); pH Urine 5 (5-7)
[2021-10-27 00:27] LABS: Influenza A by IFA Negative (Negative); Influenza B by IFA Negative (Negative); SARS Covid-2 Antigen Negative (Negative)
[2021-10-27 00:29] LABS: Alanine Aminotransferase 30 U/L (0-41); Albumin Level 4.9 g/dL (3.5-5.2); Alkaline Phosphatase 99 IU/L (40-130); Aspartate Amino Transferase 21 U/L (0-40); Blood Urea Nitrogen 8 mg/dL (6-20); Calcium 9.3 mg/dL (8.5-10.5); Carbon Dioxide 23 mmol/L (22-29); Chloride 104 mmol/L (98-107); Globulin 2.1 g/dL (1.3-4.6); Glomerular Filtration Rate 168.5 mL/min (90-130); Glucose 98 mg/dL (65-115); Osmolality Calculated 288 mOsm/kg (285-295); Sodium 140 mmol/L (136-145); Total Bilirubin 0.3 mg/dL (0.15-1.2)
[2021-10-27 00:35] LABS: Anion Gap 16.9 (5-19); Potassium 3.9 mmol/L (3.5-5.1)
[2021-10-27 00:57] VITALS: BP 117/75; PULSE 109; RESP 16; TEMP 37.5
[2021-10-27 01:33] VITALS: PULSE 107; TEMP 37.5
== END 2021-10-27 01:34 | disposition home or self-care (01) ==
PROVIDERS: Emergency Provider Emergency Medicine
DX: B34.9 Viral infection, unspecified (principal); F17.290 Nicotine dependence, other tobacco product, uncomplicated; Z20.822 Contact with and (suspected) exposure to COVID-19
CPT/HCPCS: 71045; 80053; 81003; 85025; 87426; 87804; 96360; 99284; J7030

== ENCOUNTER 2021-12-23 20:33 | Emergency (ER) | payer OTHER, SELFPAY ==
[2021-12-23 20:36] VITALS: BP 133/70; PULSE 101; RESP 16; TEMP 36.8; O2SAT 96
--- NOTE | 2021-12-23 20:42 | XRR_ITS ---
PROCEDURE INFORMATION: Exam: XR Left Ribs with PA Chest Exam date and time: 12/23/2021 8:58 PM Age: 21 years old Clinical indication: Other: Lt. Mid rib pain; Additional info: Fall injury with left rib pain TECHNIQUE: Imaging protocol: XR Left ribs with PA chest. Views: 3 views COMPARISON: CR XR chest 1V portable [id number] 10/27/2021 12:01 AM FINDINGS: Lungs: Unremarkable. No consolidation. Pleural spaces: Unremarkable. No pleural effusion. No pneumothorax. Heart/Mediastinum: Unremarkable. No cardiomegaly. Bones/joints: Unremarkable. XR/XR ribs LT mn 3V w CXR1V [id number] IMPRESSION: No acute findings.
--- NOTE | 2021-12-23 20:42 | W.ED.FALL ---
HPI - Fall General: Chief Complaint: Fall Stated Complaint: rib pain due to fall Time Seen by Provider: 12/23/21 20:36 History of Present Illness: Patient is a 21-year-old male comes to the ED with left rib pain after fall. Injury occurred yesterday. Patient says he is trying to get into the bed of his truck and he slipped and fell in the left side of his ribs hit the tailgate. He rates his pain currently an 8 out of 10. It hurts whenever he takes a deep breath. Denies any head trauma or loss of consciousness. He has no other injuries. Associated symptoms-after fall: Denies abdominal pain, chest pain, headache(s), hematuria or neck pain Review of Systems Const: Denies: fever(s), chills or fatigue Eyes: Denies: change in vision or eye discomfort ENMT: Denies: throat pain, odynophagia, nasal discharge or nasal congestion Card: Denies: chest pain, palpitations, edema, swelling of feet/ankles, dyspnea on exertion or orthopnea Resp: Reports: pain on inspiration (Left rib pain) and other (Left rib pain); Denies: dyspnea, productive cough or non-productive cough GI: Denies: abdominal pain, nausea, vomiting, diarrhea, constipation or hematochezia : Denies: flank pain, difficulty urinating, dysuria or hematuria Musc: Denies: neck pain, back pain or extremity swelling Skin/Breast: Denies: rash or new lesions Neuro: Denies: headache(s), numbness in extremities or weakness in extremities COUNTS INCLUDE 234 BEDS AT THE [facility] ED PFSH: Medical History Asthma No pertinent family history Social History Smoking and tobacco status: current every day smoker cigarettes and e-cigarettes E-Cigarette Details: vaporizer device Physical Exam Const: COMMON NORMALS: no acute distress, patient oriented x3 and alert GENERAL APPEARANCE: cooperative and comfortable HENMT: COMMON NORMALS: normocephalic HEAD & SCALP: normocephalic MOUTH: Normal oral and palatal mucosa present THROAT: posterior oropharynx normal and uvula midline Neck/C-Spine: COMMON NORMALS: supple GENERAL: Yes normal visual inspection Chest: CHEST: Yes tenderness rib left anterior-axillary line involving the 6th rib, involving the 7th rib and involving the 8th rib Resp: COMMON NORMALS: normal respiratory effort, No retractions, No use of accessory muscles and clear to auscultation bilaterally AUSCULTATION: clear to auscultation bilaterally Cardio: COMMON NORMALS: regular rate, regular rhythm, S1 normal heart sound present, S2 normal heart sound present, No gallops present (Cardio), No clicks present (Cardio), No murmurs present (Cardio) and Peripheral pulses 2+ throughout RATE: regular rate RHYTHM: regular rhythm HEART SOUNDS: S1 normal heart sound present and S2 normal heart sound present PERIPHERAL PULSES: Peripheral pulses 2+ throughout GI: COMMON NORMALS: Normal to inspection, nondistended, normoactive bowel sounds present, Soft to palpation, non-tender and no masses PALPATION: Yes Soft to palpation : COMMON NORMALS: Yes no CVA tenderness BLADDER/KIDNEY EXAM: Yes no CVA tenderness Back/Pelvis: COMMON NORMALS: no CVA tenderness Extremity: COMMON NORMALS: normal to inspection Neuro: COMMON NORMALS: patient oriented x3 and moves all extremities SENSORIUM/ORIENTATION: Yes alert Skin: GENERAL SKIN EXAM: dry skin Course Vital Signs: Vital signs: Vital Signs Temperature 98.3 F 12/23/21 20:36 Pulse Rate 101 H 12/23/21 20:36 Respiratory Rate 16 12/23/21 20:36 Blood Pressure 133/70 12/23/21 20:36 Pulse Oximetry 96 12/23/21 20:36 MDM - Fall Medical Decision Making Patient is a 21-year-old male comes in the ED with left rib pain after fall. He has some left rib tenderness to palpation. Vitals are stable and he appears in no acute distress or pain. X-ray of left ribs showed no acute fractures or findings. Patient was diagnosed with pain in left rib and discharged home with a prescription for Celebrex for pain. Return ED precautions given. Follow-up with PCP in the next week for reevaluation. Patient understood and agreed with plan. Lab Data Radiology Impressions Ribs X-Ray 12/23/21 20:42 IMPRESSION: No acute findings. Discharge Plan Discharge Patient Disposition: Home Clinical Impression: Rib pain on left side Condition: Stable Prescriptions: New celecoxib 100 mg capsule 100 mg PO BID PRN (Reason: pain) Qty: 20 0RF No Action sertraline 100 mg tablet 100 mg PO DAILY 0RF albuterol sulfate 90 mcg/actuation HFA aerosol inhaler 2 inh inhalation Q4H PRN (Reason: shortness of breath or wheezing) Qty: 8.5 0RF Discharge Orders: Discharge ED (Routine); Ordered 12/23/21 Ordered By: Jose Wagner Discharge Diet: Regular Discharge Activity: Increase activity as tolerated Patient Instructions: Rib Contusion (ED) Activity Restrictions/Additional Instructions: Follow-up with medical provider as directed in the next 5 to 7 days reevaluation.Take medications as prescribed. Apply cold pack on sore area of ribs to help with symptoms.Return to the ER or your medical provider if condition worsens. Please read and understand discharge instructions. Thank you for choosing [facility] for your healthcare needs today. Please realize this is an emergency room and that we are providing you with a medical screening exam and this may not be complete and all inclusive of all the testing and or work up that you may need to determine your ailment or severity of your illness. It is very important that you follow up as instructed or that you return to the Emergency Department should you have concerns or if your condition changes or worsens in any way. Coding Level of Care Code ED Solar Maintenance Technician for Vivian Merrill Exam Comprehensive
[2021-12-23] MEDS: HYDROcodone-acetaminophen 7.5-325 mg Tablet 1 TAB PO (21:38)
[2021-12-23 22:08] VITALS: BP 120/69; PULSE 89; RESP 16; TEMP 36.8; O2SAT 98
== END 2021-12-23 22:10 | disposition home or self-care (01) ==
PROVIDERS: Emergency Provider Physician Assistant
DX: R07.81 Pleurodynia (principal); J45.909 Unspecified asthma, uncomplicated; F17.210 Nicotine dependence, cigarettes, uncomplicated
CPT/HCPCS: 71101; 99283

== ENCOUNTER 2022-01-02 01:31 | Emergency (ER) | payer OTHER, SELFPAY ==
[2022-01-02 01:38] VITALS: BP 131/80; PULSE 84; RESP 16; TEMP 36.6; O2SAT 100; BMI 22.8
--- NOTE | 2022-01-02 02:28 | ED_ITS ---
HPI - Skin/Abscess/Foreign Bdy General: Chief complaint: Skin/Abscess/Foreign Body Stated complaint: bite on R arm Time Seen by Provider: 01/02/22 01:46 History of Present Illness: 21-year-old male with a history of a bite to the right lateral arm. He picked off the scab earlier, and noticed sticky clear fluid draining. It has increased in swelling. He is experiencing some paresthesias down the arm distally and proximally. There is no weakness. There is no other swelling. MD complaint: rash and insect bite/sting Onset (ago): day(s) Location: RUE Quality: burning Pain Consistency: constant Relieving factors: none Exacerbating factors: none Associated symptoms: Deny chills, cough, fever(s), nausea, short of breath or vomiting Review of Systems Const: Denies: fever(s) or chills Resp: Denies: dyspnea or productive cough GI: Denies: nausea or vomiting Musc: Denies: neck pain PFSH ED PFSH: Medical History Asthma No pertinent family history Social History Smoking and tobacco status: current every day smoker cigarettes and e- cigarettes E-Cigarette Details: vaporizer device Physical Exam Const: COMMON NORMALS: no acute distress GENERAL APPEARANCE: cooperative HENMT: COMMON NORMALS: normocephalic, atraumatic and Normal external nose present HEAD & SCALP: normocephalic and atraumatic NOSE: Normal external nose present Eye: COMMON NORMALS: Equal, round and reactive pupils present and EOMs intact bilaterally PUPIL: Yes Equal, round and reactive pupils present Chest: COMMONS NORMALS: normal inspection of the chest CHEST: Yes Symmetrical chest wall rise Resp: COMMON NORMALS: normal respiratory effort, No use of accessory muscles and clear to auscultation bilaterally AUSCULTATION: clear to auscultation bilaterally Cardio: COMMON NORMALS: regular rate and regular rhythm RATE: regular rate RHYTHM: regular rhythm Extremity: NARRATIVE EXTREMITY EXAM: Examination of the right upper extremity reveals a small skin ulceration of the right lateral arm. This may be a spider bite, but this is not completely clear. There is mild surrounding swelling. There is minimal redness. There is no streaking. There is no fluctuant fluid collection beneath. Course Vital Signs: Vital signs: Vital Signs Temperature 97.8 F 01/02/22 01:38 Pulse Rate 84 01/02/22 01:38 Respiratory Rate 16 01/02/22 01:38 Blood Pressure 131/80 01/02/22 01:38 Pulse Oximetry 100 01/02/22 01:38 MDM - Skin/Abscess/Foreign Bdy Medicial Decision Making We will give 1 dose of dexamethasone for swelling creating the paresthesias he is feeling down his right arm. We will also give 1 dose of doxycycline. 1 week to follow-up. He will be allowed discharge Discharge Plan Discharge Patient Disposition: Home Clinical Impression: Spider bite wound Condition: Stable Prescriptions: New doxycycline hyclate 100 mg tablet 100 mg PO BID 7 Days Qty: 14 0RF No Action sertraline 100 mg tablet 100 mg PO DAILY 0RF albuterol sulfate 90 mcg/actuation HFA aerosol inhaler 2 inh inhalation Q4H PRN (Reason: shortness of breath or wheezing) Qty: 8.5 0RF celecoxib 100 mg capsule 100 mg PO BID PRN (Reason: pain) Qty: 20 0RF Discharge Orders: Discharge ED (Routine); Ordered 01/02/22 Ordered By: Simón Arredondo Discharge Diet: Advance as tolerated Discharge Activity: Increase activity as tolerated Patient Instructions: Insect Bite or Sting (ED) Activity Restrictions/Additional Instructions: Return for fever, increasing drainage of fluid, streaking redness up the arm, worsening swelling, any other concerning symptoms Coding Level of Care Code ED Heading And Priming Tool Setter for Vivian Merrill
[2022-01-02] MEDS: doxycycline 100 mg Tablet PO (02:30)
[2022-01-02 02:31] VITALS: BP 116/81; PULSE 80; RESP 16; O2SAT 98
== END 2022-01-02 02:32 | disposition home or self-care (01) ==
PROVIDERS: Emergency Provider Emergency Medicine
DX: T63.301A Toxic effect of unspecified spider venom, accidental (unintentional), initial encounter (principal)
CPT/HCPCS: 99283

== ENCOUNTER 2022-02-28 11:55 | Emergency (ER) | payer OTHER, SELFPAY ==
[2022-02-28 12:02] VITALS: BP 124/80; PULSE 100; RESP 16; TEMP 36.9; O2SAT 98
--- NOTE | 2022-02-28 13:07 | W.ED.GENADLT ---
HPI - General Adult General: Chief complaint: General Medical Stated complaint: Chills, cough, headache Time Seen by Provider: 02/28/22 12:41 History of Present Illness: Patient is a 21-year-old male without any significant past medical history presenting to the emergency room for evaluation of cough, generalized weakness, body ache and fatigue for the last x1 week. Patient tells me that there is room for the COVID going around his workplace. He has not been in contact with anybody who has tested positive for COVID. He denies any loss of taste or smell or diarrhea. Patient tells me that he is able to hold food down. Denies any fever or chills at home. No other focal complaints at this time. Onset:1 week ago Duration:1 week Location:home Severity:mild Associated symptoms: Reports malaise; Deny chest pain, dyspnea, nausea, rash, palpitations or vomiting Review of Systems Const: Reports: body aches, fatigue, malaise and other (+generalized weakness); Denies: fever(s) or chills Eyes: Denies: change in vision ENMT: Denies: mouth pain Card: Denies: chest pain or palpitations Resp: Reports: non-productive cough; Denies: dyspnea GI: Denies: abdominal pain, nausea, vomiting or diarrhea : Denies: dysuria Musc: Denies: extremity pain Skin/Breast: Denies: rash or new lesions Neuro: Denies: weakness in extremities Psych: Reports: other (Normal mood) Tonny/Lymph: Denies: easy bruising PFS ED PFSH: Medical History Asthma No pertinent family history Social History Smoking and tobacco status: current every day smoker cigarettes and e-cigarettes E-Cigarette Details: vaporizer device Physical Exam Const: COMMON NORMALS: alert HENMT: COMMON NORMALS: atraumatic HEAD & SCALP: atraumatic MOUTH: moist mucous membranes not abnormal Eye: COMMON NORMALS: EOMs intact bilaterally and conjunctivae normal CONJUNCTIVA: Yes conjunctivae normal Neck/C-Spine: COMMON NORMALS: full ROM and supple Resp: COMMON NORMALS: normal respiratory effort and clear to auscultation bilaterally AUSCULTATION: clear to auscultation bilaterally Cardio: COMMON NORMALS: regular rate RATE: regular rate GI: COMMON NORMALS: Soft to palpation and non-tender PALPATION: Yes Soft to palpation Extremity: COMMON NORMALS: full ROM Neuro: SENSORIUM/ORIENTATION: Yes alert MOTOR EXAM: No Abnormal motor strength present and Other motor observations present (no focal motor deficits) Psych: COMMON NORMALS: speech normal SPEECH: Yes normal speech MOOD & AFFECT: Yes euthymic mood Course Vital Signs: Vital signs: Vital Signs Temperature 98.4 F 02/28/22 12:02 Pulse Rate 100 02/28/22 12:02 Respiratory Rate 16 02/28/22 12:02 Blood Pressure 124/80 02/28/22 12:02 Pulse Oximetry 98 02/28/22 12:02 MDM - General Adult Medical Decision Making 21-year-old male presenting to the emergency room for concern of generalized weakness, body aches, cough x1 week. Patient is afebrile, in no acute distress. Patient does not show any signs of dehydration. Clinically, patient is well-appearing. Patient has been able tolerate p.o. without any difficulty. We will send outpatient viral swabs for patient Rx tylenol PRN fever Disposition: Discharge. Patient counseled regarding diagnostic impression, treatment plan. Patient given ED strict return precautions to return for continuation, worsening, or development of new symptoms. Instructed to f/u w/ PCP regarding symptoms today. Patient verbalized understanding. Discharge Plan Discharge Patient Disposition: Home Clinical Impression: Cough, Body aches, Generalized weakness Condition: Stable Prescriptions: New acetaminophen 500 mg tablet 500 mg PO Q6H PRN (Reason: pain) 5 Days Qty: 20 0RF No Action sertraline 100 mg tablet 100 mg PO DAILY 0RF albuterol sulfate 90 mcg/actuation HFA aerosol inhaler 2 inh inhalation Q4H PRN (Reason: shortness of breath or wheezing) Qty: 8.5 0RF celecoxib 100 mg capsule 100 mg PO BID PRN (Reason: pain) Qty: 20 0RF Discharge Orders: Discharge ED (Routine); Ordered 02/28/22 Ordered By: Curt Hickey Discharge Diet: Advance as tolerated Discharge Activity: Increase activity as tolerated Patient Instructions: Acute Cough (ED) Activity Restrictions/Additional Instructions: Come back to the emergency room if your symptoms worsen, have any shortness of breath, fever/chills, dehydration, inability tolerate food or drinks, any difficulty breathing, or any new or concerning complaints. Stand Alone Forms: Work/School Release Coding Level of Care Code ED Undercollar Maker for Vivian Merrill
[2022-03-03 15:49] LABS: Adenovirus Not Detected (Not Detected); Human Metapneumovirus Not Detected (Not Detected); Human Parainflu Virus 1 Not Detected (Not Detected); Human Parainflu Virus 2 Not Detected (Not Detected); Human Parainflu Virus 3 Not Detected (Not Detected); Human Rsv A Not Detected (Not Detected); Influenza A Not Detected (Not Detected); Influenza B Not Detected (Not Detected); Rhinovirus/Enterovirus Not Detected (Not Detected)
== END 2022-02-28 13:20 | disposition home or self-care (01) ==
PROVIDERS: Emergency Provider Emergency Medicine
DX: R05.9 Cough, unspecified (principal); R53.1 Weakness; R52 Pain, unspecified; F17.290 Nicotine dependence, other tobacco product, uncomplicated
CPT/HCPCS: 87633; 99283

== ENCOUNTER 2022-03-25 06:48 | Outpatient (CLI) | payer OTHER, SELFPAY ==
--- NOTE | 2022-03-25 13:02 | PFTS_ITS ---
Date of Study:03/25/22 Date of Dictation: MECHANICS: Forced vital capacity (FVC) is normal. Forced expiratory volume in one second (FEV1) is normal. FEV1/FVC is normal. FLOW VOLUME LOOP: Normal. LUNG VOLUMES: Total lung capacity (TLC) is normal. Residual volume (RV) is normal. DIFFUSING CAPACITY FOR CARBON MONOXIDE: Normal. INTERPRETATION: The prebronchodilator spirometry is normal. No postbronchodilator spirometry was performed. Lung volumes are normal. Gas exchange (DLCO) is normal. MTDD
== END 2022-03-25 06:49 | disposition home or self-care (01) ==
LOC: RT 06:49
PROVIDERS: PCP Family Medicine; Visit Provider Family Medicine
DX: R05.3 Chronic cough (principal)
CPT/HCPCS: 94010; 94726; 94729